=== PATIENT | female | born 1970 | race Hispanic/Latino ===

== ENCOUNTER → 2025-04-11 | Outpatient (CLI) | payer BC, OTHER ==
--- NOTE | 2025-04-11 14:10 | NUR ---
MBSS COMPLETED. Non transient penetration during the swallow with thin liquids via serial sip; transient penetration during the swallow with large sips. No aspirations. Recommend regular solids, thin liquids and pills whole with liquids as tolerated. Compensatory strategies: 1. sit upright during oral intake 2. Single sips with cup and straw sips 3. extra dry swallows DIAGNOSTIC FINDINGS: Pt presented with mild pharyngeal dysphagia characterized by very mild decreased tongue base retraction; delayed pharyngeal response trigger and decreased laryngeal excursion evidenced by premature spillage to valleculae with spillover to pyriform sinuses; residue on base of tongue and once on posterior pharyngeal wall; resulting in transient penetration during the swallow with large sips of thin liquids and non-transient penetration during the swallow with serial sips of thin liquids. No aspirations observed. Oral motor strength, ROM, and coordination within functional limits. CP Bar observed at C5-C6 level not affecting the swallowing. JAVA SDET reviewed results and recommendations with patient. JAVA SDET educated patient on risks and consequences of aspiration. Speech therapy not warranted at this time. Very mild pharyngeal dysphagia best managed with modification and compensatory strategies. All questions answered. Addendum: 04/11/[address] EDEN ESTRADA Amended: Links added.
--- NOTE | 2025-04-11 15:16 | HMCIMG ---
MODIFIED BARIUM SWALLOW W CINE INDICATION: Dysphagia, unspecified; Feeding difficulties, unspecified FINDINGS: Fluoroscopic assistance was provided to the speech pathologist while performing examination. For findings and dietary recommendations, refer to speech pathologist's report. FLUORO TIME: 2 minutes IMPRESSION: Modified barium swallow as described.
== END | disposition home or self-care (01) ==
LOC: RAH 13:16
PROVIDERS: ATTEND Internal Medicine
DX: R13.10 Dysphagia, unspecified (principal); R63.30 Feeding difficulties, unspecified
CPT/HCPCS: 74230; 92611